=== PATIENT | female | born 1950 | race Caucasian/White ===

== ENCOUNTER → 2017-01-24 | Outpatient (CLI) | payer MEDICARE, OTHER ==
[~2017-01-24] MED LIST: ACETAMINOPHEN PO; ALLOPURINOL300 MG PO; ASPIRIN PO; ASPIRIN81 M1 PO; CARVEDILOL12.5 MG PO; CLOPIDOGREL BIS75 MG PO; COLACE PO; COUMADIN PO; FEOSOL PO; FERROUS SULFATE PO; FUROSEMIDE80 MG PO; GLUCOPHAGE500 MG PO; GLUCOTROL PO; GLUCOTROL XL PO; HCTZ PO; HUMALOG100 U/ML SUBQ; HUMULIN R100 U/ML SUBQ; IMDUR PO; ISORDIL PO; KEPPRA500 MG PO; KEPPRA750 MG PO; LANTUS SUBQ; LANTUS100 U/ML SQ; LEVETIRACETAM500 M1 PO; LIPITOR80 MG PO; LISINOPRIL PO; LISINOPRIL20 MG PO; LOPRESSOR PO; LORTAB 7.5-5001 TAB PO; METFORMIN PO; METRONIDAZOLE250 MG PO; NOVOLOG FL100 UNIT/1 SUBQ; OMEPRAZOLE20 M1; PLAVIX PO; PRILOSEC PO; REGLAN PO; REGLAN10 MG PO; VICODIN PO; VYTORIN 10/40 T1 TAB PO; ZOCOR PO; ZYLOPRIM PO
--- NOTE | ~2017-01-24 | CT4 ---
[facility] A Service of [facility] & [facility] RADIOLOGY TEXT RESULTS PATIENT: MITCH PAZ LOCATION: [facility] : [birth year] UNIT #: [id number] AGE: [address]: Sohail Cheung MD SEX: F ORDER DR: [id number] [facility] [address] [place], [place] [address] [id number] O MR#: [id number] #: [id number] NAME: IMTCH PAZ. : 1950 SEX: F STUDY DATE/TIME: 01/24/2017 11:23 UNIT: [facility] ROOM: STUDY DESCRIPTION: CT Abd and Pelv Wo Cont Attending Physician: Sohail Cheung M.D. Ordering Physician: Sohail Cheung M.D. Primary Care Physician: Sohail Cheung M.D. MEDICAL IMAGING REPORT This report is preliminary unless electronic signature is present EXAM CT abdomen and pelvis INDICATIONS Left lower quadrant abdominal pain. Vomiting for 2-3 days. Renal failure. TECHNIQUE CT of the abdomen and pelvis without contrast. Coronal and sagittal reconstructions were obtained. This CT exam was performed with one or more of the following radiation dose reduction techniques: automatic control, adjustment of mA and/or kV according to patient size, and iterative reconstruction. COMPARISON CT abdomen 06/17/2009. FINDINGS There is acute sigmoid colon diverticulitis. There is moderate circumferential thickening of the proximal sigmoid colon with associated pericolonic inflammation. No evidence of abscess or perforation. There is a large number of diverticula, particularly in the left side of the colon. The bowel is not dilated. The appendix is normal. No enlarged retroperitoneal or mesenteric lymph nodes. Noncontrast evaluation of the liver is within normal limits. Gallbladder is surgically absent. There is a low-attenuation cystic collection inferior to the uncinate process of the pancreas measuring 1.6 x 1.2 cm. This probably represents a small pseudocyst. The spleen, adrenal glands are within normal limits. There is no hydronephrosis. No urinary calculi. Subcentimeter retroperitoneal lymph nodes are fairly similar to the prior [facility] A Service of [facility] & [facility] RADIOLOGY TEXT RESULTS PATIENT: MITCH PAZ LOCATION: [facility] : [birth year] UNIT #: [id number] AGE: [address]: Sohail Cheung MD SEX: F ORDER DR: study. None of these are pathologically enlarged. PELVIS: No pelvic mass. The uterus is presumed surgically absent. The ovaries are not clearly identified and may be atrophic or surgically absent. Bladder is decompressed. There are a few small prominent iliac lymph nodes, however does do not considered to be pathologically enlarged. No acute osseous abnormalities. IMPRESSION 1. Acute sigmoid colon diverticulitis. No evidence of abscess or perforation. 2. 1.6 cm cystic mass along the inferior margin of the uncinate process. This is probably a small pseudocyst. I would recommend a follow-up study to confirm. Initial evaluation with a pancreatic protocol MRI or CT (with and without contrast) would be recommended. Ultimately, 12 months of stability would be recommended to confirm a benign etiology. Dictated by... Andi Salinas M.D. THIS IS AN ELECTRONICALLY VERIFIED REPORT Andi Salinas M.D. at 01/24/2017 4:25 PM SHARRI/yoko TD: 01/24/2017 16:16 JOB #: [id number] MEDICAL IMAGING REPORT Page 1 of 1 COPY
== END | disposition home or self-care (01) ==
LOC: CCAT 10:44
DX: E11.21 Type 2 diabetes mellitus with diabetic nephropathy (principal); R10.32 Left lower quadrant pain; R11.10 Vomiting, unspecified; K57.32 Diverticulitis of large intestine without perforation or abscess without bleeding; R19.00 Intra-abdominal and pelvic swelling, mass and lump, unspecified site
CPT/HCPCS: 74176

== ENCOUNTER → 2017-02-16 | Day surgery (SDC) | payer MEDICARE, OTHER | END | disposition home or self-care (01) | LOC: COPS 09:55 | DX: Z87.19 Personal history of other diseases of the digestive system (principal); Z53.8 Procedure and treatment not carried out for other reasons | CPT/HCPCS: 82947 ==

== ENCOUNTER → 2017-02-17 | Day surgery (SDC) | payer MEDICARE, OTHER ==
--- NOTE | ~2017-02-17 | OR ---
Unit #: [id number] #: [id number] Patient: MITCH STERN [id number] [facility] [address]. [place], [place] [address] [id number] O MR#: [id number] NAME: MITCH STERN. ROOM: Date of Procedure: 02/17/2017 Admission Date: 02/17/2017 Surgeon: Chaparro Madera M.D. : 1950 Attending Physician: Chaparro Madera M.D. Primary Care Physician: Sohail Cheung M.D. OPERATIVE REPORT PRIMARY CARE PHYSICIAN Sohail Cheung M.D. PREOPERATIVE DIAGNOSIS Abnormal CT scan presumed diverticulitis. POSTOPERATIVE DIAGNOSIS Sigmoid diverticular disease. PROCEDURE PERFORMED Incomplete colonoscopy to 40 cm. ANESTHESIA Monitored anesthesia. INDICATIONS FOR PROCEDURE Ms. Stern is a 66-year-old female with multiple medical problems, who recently presented to Dr. Cheung with left lower quadrant pain. She was started on antibiotics for presumed diverticulitis and a CT scan was obtained, which showed thickening of the sigmoid colon and diverticulosis. The endoscopic evaluation was indicated to rule out other disease and to assess the extent of diverticular disease. DESCRIPTION OF PROCEDURE The patient was admitted to [facility], positively identified, and transported to the endoscopy unit. After appropriate monitoring and positioning, she was sedated by the nurse shoe designer. On rectal examination, there was no local anorectal pathology. Colonoscope was passed through the anal verge into the rectosigmoid. In the sigmoid colon, she had severe diverticular disease and at 40 cm, she had a very tight hairpin turn that was unable to be negotiated without putting excess pressure on the colon and to prevent the possibility of perforation, the procedure was aborted. I did make several attempts to manipulate the colon and change the patient's position to try to traverse this area, but unfortunately this was such a tight hairpin turn that I was unable to assess any of the colon above 40 cm. The patient otherwise tolerated the procedure well and transported to recovery in stable condition. Findings were discussed with her . At this time, to complete evaluation of her colon, I will suggest an outpatient air contrast barium enema. If the patient has persistent pain or recurrent episodes, then surgical resection on the likely basis may very well be indicated. Unit #: [id number] #: [id number] Patient: MITCH STERN Dictated by... Arden Russo/brent TD: 02/17/2017 22:19 JOB #: [id number] OPERATIVE REPORT Page 1 of 1 X Chaparro Madera MD X PROCEDURE OPERATIVE NOTE
== END | disposition home or self-care (01) ==
LOC: COPS 05:25
DX: K57.30 Diverticulosis of large intestine without perforation or abscess without bleeding (principal); G40.909 Epilepsy, unspecified, not intractable, without status epilepticus; I10 Essential (primary) hypertension; I25.10 Atherosclerotic heart disease of native coronary artery without angina pectoris; E11.319 Type 2 diabetes mellitus with unspecified diabetic retinopathy without macular edema; E11.43 Type 2 diabetes mellitus with diabetic autonomic (poly)neuropathy; K31.84 Gastroparesis; E11.21 Type 2 diabetes mellitus with diabetic nephropathy; D50.9 Iron deficiency anemia, unspecified; E66.9 Obesity, unspecified; G47.30 Sleep apnea, unspecified; E11.65 Type 2 diabetes mellitus with hyperglycemia; Z87.440 Personal history of urinary (tract) infections; Z87.891 Personal history of nicotine dependence; Z79.4 Long term (current) use of insulin; Z79.84 Long term (current) use of oral hypoglycemic drugs; Z79.82 Long term (current) use of aspirin; Z79.02 Long term (current) use of antithrombotics/antiplatelets; Z79.899 Other long term (current) drug therapy; Z90.710 Acquired absence of both cervix and uterus; Z98.890 Other specified postprocedural states; Z98.49 Cataract extraction status, unspecified eye; Z96.652 Presence of left artificial knee joint; Z90.49 Acquired absence of other specified parts of digestive tract; Z68.31 Body mass index [BMI] 31.0-31.9, adult
CPT/HCPCS: 82947

== ENCOUNTER → 2017-03-15 | Outpatient (CLI) | payer MEDICARE, OTHER ==
--- NOTE | ~2017-03-15 | CR42 ---
[facility] A Service of [facility] RADIOLOGY TEXT RESULTS PATIENT: MITCH PAZ LOCATION: [facility] : [birth year] UNIT #: [id number] AGE: [address]: Chaparro Madera MD SEX: F ORDER DR: [id number] [facility] [address]. [place], [place] [address] [id number] O MR#: [id number] #: [id number] NAME: MITCH PAZ. : 1950 SEX: F STUDY DATE/TIME: 03/15/2017 11:03 UNIT: [facility] ROOM: STUDY DESCRIPTION: CR Barium Enema Attending Physician: Chaparro Madera M.D. Referring Physician: Chaparro Madera M.D. Ordering Physician: Chaparro Madera M.D. Primary Care Physician: Sohail Cheung M.D. MEDICAL IMAGING REPORT This report is preliminary unless electronic signature is present EXAM Single contrast barium enema 03/15/2017 INDICATIONS 66-year-old female with a history of diverticulitis. Lower abdominal pain, polyps and colonoscopy procedure performed 2 weeks ago. Symptoms of low abdominal pain began a month ago. The patient also reports a history of "obstruction". TECHNIQUE Following a veterinary medicine doctor radiograph of the abdomen, multiple sequential overhead and spot fluoroscopic views of the colon were obtained in various projections after the uneventful gravity installation of a liquid barium solution on 03/15/2017. Correlation is made with recent CT 01/24/2017 of the abdomen and pelvis. FINDINGS Notes indicate approximately 4.3 minutes of fluoroscopy time was used in the case. 29 images from the procedure were saved to the DR PACS system. Systems Project Manager image demonstrates degenerative change in the lumbar spine and both hips and postop changes of cholecystectomy. There are vascular calcifications present. No dilated air-filled loops of bowel identified. Due to the patient's functional status the examination was performed with single contrast technique rather than air contrast technique. The patient was placed in the left lateral decubitus position and the barium enema tip was inserted into the rectum. The balloon was inflated under fluoroscopic surveillance. It was seen to be in good position. [place] instillation of barium contrast then commenced. There is mild redundancy of the sigmoid colon. There is diverticulosis of the sigmoid colon and rectosigmoid colon extending to the level of the splenic flexure with more intermittent diverticular changes in the more proximal aspects of the colon. There was STS. [facility] A Service of [facility] RADIOLOGY TEXT RESULTS PATIENT: MITCH PAZ LOCATION: [facility] : [birth year] UNIT #: [id number] AGE: [address]: Chaparro Madera MD SEX: F ORDER DR: no obstruction or impediment to contrast passage through the colon to the level of the cecum. The appendix was opacified along with the distal ileal small bowel loops. No distinct mass or focal stricture was identified. By report, the recent colonoscopy demonstrated colonic polyps. Please refer to the prior colonoscopy procedure report for further details. Additional overhead views were obtained by the technologist demonstrating no additional finding. IMPRESSION 1. Barium enema demonstrates extensive diverticulosis of the rectosigmoid and sigmoid colon and more intermittent diverticulosis of the left and more proximal aspects of the colon. 2. No focal stricture, mass or evidence of obstruction. 3. The entire colon was opacified and there was opacification of small bowel loops. The appendix appears normal. 4. Notes indicate that approximately 4.3 minutes of fluoroscopy time was used in the case. 29 images from the procedure were saved to the PACS system. Dictated by... Rosalio Chi M.D. THIS IS AN ELECTRONICALLY VERIFIED REPORT Rosalio Chi M.D. at 03/16/2017 7:41 AM KENDY/yoko TD: 03/15/2017 19:38 JOB #: [id number] MEDICAL IMAGING REPORT Page 1 of 1 COPY
== END | disposition home or self-care (01) ==
LOC: CRAD 09:39
DX: K57.32 Diverticulitis of large intestine without perforation or abscess without bleeding (principal); E11.39 Type 2 diabetes mellitus with other diabetic ophthalmic complication; E11.21 Type 2 diabetes mellitus with diabetic nephropathy; M19.90 Unspecified osteoarthritis, unspecified site; E79.0 Hyperuricemia without signs of inflammatory arthritis and tophaceous disease; I25.10 Atherosclerotic heart disease of native coronary artery without angina pectoris; I10 Essential (primary) hypertension; R53.82 Chronic fatigue, unspecified; R68.89 Other general symptoms and signs; R56.9 Unspecified convulsions; R40.0 Somnolence; K57.30 Diverticulosis of large intestine without perforation or abscess without bleeding
CPT/HCPCS: 74270